=== PATIENT | female | born 2000 | race Caucasian/White ===

== ENCOUNTER 2019-12-14 11:41 | Emergency (ER) | payer SELFPAY ==
--- NOTE | 2019-12-14 13:15 | EDPHYS ---
Physician Documentation [facility] Name: Nelida Chin Age: 19 yrs Sex: Female : 2000 Arrival Date: 12/14/2019 Time: 11:44 Bed 30 Private MD: DARIA Physician Bhanu Flores HPI: 12/13 13:10 This 19 yrs old Female presents to ER via Ambulatory with complaints of sierra Vaginal Itching. 13:10 The patient presents with a possible exposure to a sexually transmitted disease, sierra herpes. Onset: The symptoms/episode began/occurred 3 day(s) ago. Modifying factors: The symptoms are alleviated by nothing, the symptoms are aggravated by nothing. Associated signs and symptoms: The patient has no apparent associated signs or symptoms. Severity of symptoms: At their worst the symptoms were mild, in the emergency department the symptoms are unchanged. The patient is sexually active, reportedly has a single partner, does not use protection during intercourse. The patient has not experienced similar symptoms in the past. 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 - Social history:: Smoking status: Patient denies any tobacco usage or history of. - Family history:: not pertinent. ROS: 13:10 Constitutional: Negative for fever, chills, and weight loss, Eyes: Negative for injury, sierra pain, redness, and discharge, ENT: Negative for injury, pain, and discharge, Neck: Negative for injury, pain, and swelling, Cardiovascular: Negative for chest pain, palpitations, and edema, Respiratory: Negative for shortness of breath, cough, wheezing, and pleuritic chest pain, Abdomen/GI: Negative for abdominal pain, nausea, vomiting, diarrhea, and constipation, Back: Negative for injury and pain, MS/Extremity: Negative for injury and deformity, Skin: Negative for injury, rash, and discoloration, Neuro: Negative for headache, weakness, numbness, tingling, and seizure, Psych: Negative for depression, anxiety, suicide ideation, homicidal ideation, and hallucinations, Allergy/Immunology: Negative for hives, rash, and allergies, Endocrine: Negative for neck swelling, polydipsia, polyuria, polyphagia, and marked weight changes, Hematologic/Lymphatic: Negative for swollen nodes, abnormal bleeding, and unusual bruising. 13:10 : Positive for vaginal itching, of the groin. Exam: 13:10 Constitutional: This is a well developed, well nourished patient who is awake, alert, sierra and in no acute distress. Head/Face: Normocephalic, atraumatic. Eyes: Pupils equal round and reactive to light, extra-ocular motions intact. Lids and lashes normal. Conjunctiva and sclera are non-icteric and not injected. Cornea within normal limits. Periorbital areas with no swelling, redness, or edema. ENT: Nares patent. No nasal discharge, no septal abnormalities noted. Tympanic membranes are normal and external auditory canals are clear. Oropharynx with no redness, swelling, or masses, exudates, or evidence of obstruction, uvula midline. Mucous membranes moist. Neck: Trachea midline, no thyromegaly or masses palpated, and no cervical lymphadenopathy. Supple, full range of motion without nuchal rigidity, or vertebral point tenderness. No Meningismus. Chest/axilla: Normal chest wall appearance and motion. Nontender with no deformity. No lesions are appreciated. Cardiovascular: Regular rate and rhythm with a normal S1 and S2. No gallops, murmurs, or rubs. Normal PMI, no JVD. No pulse deficits. Respiratory: Lungs have equal breath sounds bilaterally, clear to auscultation and percussion. No rales, rhonchi or wheezes noted. No increased work of breathing, no retractions or nasal flaring. Abdomen/GI: Soft, non-tender, with normal bowel sounds. No distension or tympany. No guarding or rebound. No evidence of tenderness throughout. Back: No spinal tenderness. No costovertebral tenderness. Full range of motion. MS/ Extremity: Pulses equal, no cyanosis. Neurovascular intact. Full, normal range of motion. Neuro: Awake and alert, GCS 15, oriented to person, place, time, and situation. Cranial nerves II-XII grossly intact. Motor strength 5/5 in all extremities. Sensory grossly intact. Cerebellar exam normal. Normal gait. Psych: Awake, alert, with orientation to person, place and time. Behavior, mood, and affect are within normal limits. 13:10 Skin: Appearance: Temperature: normal temperature, Moisture: normal moisture, petechiae, not noted, ecchymosis, not noted, flushing, not noted, swelling, is not appreciated. Vital Signs: 12:02 BP 131 / 82; Pulse 81; Resp 16 S; Temp 98.4(TE); Pulse Ox 100% on R/A; Weight 62.14 kg aa5 (R); Height 5 ft. 6 in. (167.64 cm) (R); Pain 0/10; 12:52 BP 114 / 77; Pulse 80; Resp 14; Temp 98.4; Pulse Ox 100% on R/A; mh5 12:02 Body Mass Index 22.11 (62.14 kg, 167.64 cm) aa5 MDM: 12:40 Patient medically screened. [facility] 13:13 Data reviewed: vital signs, nurses notes, lab test result(s), urinalysis. [facility] 12/13 13:10 Order name: Wound Culture: hsv [facility] 12/13 13:43 Order name: Urine Dipstick--Ancillary (enter results) 12/13 13:43 Order name: Urine --Ancillary (enter results) 12/13 13:46 Order name: Wound Culture [facility] 12/13 14:07 Order name: Urine --Ancillary [facility] 12/13 14:07 Order name: Urine Dipstick-Ancillary [facility] 12/13 13:10 Order name: Urine Dipstick-Ancillary (obtain specimen); Complete Time: 13:41 [facility] 12/13 13:10 Order name: Urine Test (obtain specimen); Complete Time: 13:41 [facility] Administered Medications: 14:04 Drug: Rocephin (cefTRIAXone) 1 grams Route: IM; Site: right ventrogluteal; iw 14:20 Follow up: Response: No adverse reaction iw 14:04 Drug: Valtrex 1000 mg Route: PO; iw 14:20 Follow up: Response: No adverse reaction iw 14:05 Drug: Zithromax 1 grams Route: PO; iw 14:20 Follow up: Response: No adverse reaction iw Disposition: 12/14/19 13:14 Discharged to Home. Impression: Rash and other nonspecific skin eruption - genital. - Condition is Stable. - Discharge Instructions: Rash, Sexually Transmitted Disease, Sexually Transmitted Disease, Hvcd-pi-Vusr, Rash, Bghi-ox-Dsal. - Prescriptions for Valtrex 1 g Oral Tablet - take 1 tablet by ORAL route every 12 hours for 10 days; 20 tablet. Doxycycline Hyclate 100 mg Oral Tablet - take 1 tablet by ORAL route every 12 hours; 20 tablet. Motrin IB 200 mg Oral Tablet - take 2 tablet by ORAL route every 6 hours As needed as needed with food; 30 tablet. - Medication Reconciliation Form, Thank You Letter, Antibiotic Education, Prescription Opioid Use, Work release form form. - Follow up: Private Physician; When: 2 - 3 days; Reason: Recheck today's complaints, Continuance of care, Re-evaluation by your physician. - Problem is new. - Symptoms have improved. Signatures: Dispatcher [employer] EDBhanu Loera MD MD cha Williams, Irene, RN RN Elizabeth Mendosa RN RN aa5 Corrections: (The following items were deleted from the chart) 14:18 13:14 12/14/2019 13:14 Discharged to Home. Impression: Rash and other nonspecific skin iw eruption - genital. Condition is Stable. Forms are Medication Reconciliation Form, Thank You Letter, Antibiotic Education, Prescription Opioid Use. Follow up: Private Physician; When: 2 - 3 days; Reason: Recheck today's complaints, Continuance of care, Re-evaluation by your physician. Problem is new. Symptoms have improved. sierra
--- NOTE | 2019-12-14 13:15 | ER ---
Nurse's Notes [facility] Name: Nelida Chin Age: 19 yrs Sex: Female : 2000 Arrival Date: 12/14/2019 Time: 11:44 Bed 30 Private MD: Diagnosis: Rash and other nonspecific skin eruption-genital Presentation: 12/13 12:02 Chief complaint: Patient states: "I shaved my pubic area on Tuesday and now I have bumps aa5 and it balderrama and it itches". Coronavirus screen: The patient has NOT traveled to a country currently being monitored by the [facility] within the last 14 days. The patient has NOT had contact with any known and/or suspected case of coronavirus. Ebola Screen: Patient negative for fever greater than or equal to 101.5 degrees Fahrenheit, and additional compatible Ebola Virus Disease symptoms. Initial Sepsis Screen: Does the patient meet any 2 criteria? No. Patient's initial sepsis screen is negative. Does the patient have a suspected source of infection? No. Patient's initial sepsis screen is negative. Risk Assessment: Do you want to hurt yourself or someone else? Patient reports no desire to harm self or others. 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 - Social history:: Smoking status: Patient denies any tobacco usage or history of. - Family history:: not pertinent. Screenin:22 Abuse screen: Denies threats or abuse. Denies injuries from another. Nutritional iw screening: No deficits noted. Tuberculosis screening: No symptoms or risk factors identified. Fall Risk None identified. Assessment: 12:20 General: Appears in no apparent distress. Behavior is calm, cooperative. Pain: Denies iw pain. Neuro: Level of Consciousness is awake, alert, obeys commands, Oriented to person, place, time, situation, Moves all extremities. Full function. Cardiovascular: Patient's skin is warm and dry. Respiratory: Respiratory effort is even, unlabored, Respiratory pattern is regular, symmetrical. GI: Abdomen is flat, non-distended. : Blisters noted on labia Reports vaginal itching. Derm: Skin is intact, is healthy with good turgor. Musculoskeletal: Range of motion: intact in all extremities. Injury Description:. Vital Signs: 12:02 BP 131 / 82; Pulse 81; Resp 16 S; Temp 98.4(TE); Pulse Ox 100% on R/A; Weight 62.14 kg aa5 (R); Height 5 ft. 6 in. (167.64 cm) (R); Pain 0/10; 12:52 BP 114 / 77; Pulse 80; Resp 14; Temp 98.4; Pulse Ox 100% on R/A; mh5 12:02 Body Mass Index 22.11 (62.14 kg, 167.64 cm) aa5 ED Course: 11:44 Patient arrived in ED. ag5 12:01 Arm band placed on. aa5 12:03 Triage completed. aa 12:20 Nicolasa Phillips, RN is Primary Nurse. iw 12:22 No provider procedures requiring assistance completed. iw 12:38 Bhanu Flores MD is Attending Physician. [facility] 12:57 Patient has correct armband on for positive identification. Placed in gown. Bed in low mh5 position. Call light in reach. Side rails up X 1. Pillow given. Pulse ox on. NIBP on. 13:41 Wound Culture: hsv Sent. iw Administered Medications: 14:04 Drug: Rocephin (cefTRIAXone) 1 grams Route: IM; Site: right ventrogluteal; iw 14:20 Follow up: Response: No adverse reaction iw 14:04 Drug: Valtrex 1000 mg Route: PO; iw 14:20 Follow up: Response: No adverse reaction iw 14:05 Drug: Zithromax 1 grams Route: PO; iw 14:20 Follow up: Response: No adverse reaction iw Outcome: 13:14 Discharge ordered by . [facility] 14:18 Patient left the ED. iw Signatures: Bhanu Flores MD MD cha Williams, Irene, RN INDRA Elizabeth Blake RN RN [email or web address] Azeb Perez [facility] Natalie, Judith banner
[2019-12-14] MEDS ORDERED: AZITHROMYCIN 250 MG TAB ONE (13:50)
[2019-12-14] MEDS ORDERED: VALACYCLOVIR 500 MG TAB ONE (13:50)
[2019-12-14] MEDS ORDERED: CEFTRIAXONE 1000 MG/VIAL ONE (13:51)
[2019-12-14 14:06] LABS: Urine Blood TRACE (NEG); Urine Glucose NEGATIVE (NEG); Urine Protein TRACE (NEG); Urine Specific Gravity 1.025 (1.005-1.030); Urine pH 6.5 (5.0-7.0)
[2019-12-14 14:42] VITALS: TEMP 98.4; O2SAT 100
[2019-12-14 14:43] VITALS: BP 114/77
== END 2019-12-14 14:18 | disposition home or self-care (01) ==
LOC: ER 11:41
DX: L29.2 Pruritus vulvae (principal)
CPT/HCPCS: 81003; 81025; 87252; 96372; 99283

== ENCOUNTER 2020-10-26 11:55 | Emergency (ER) | payer SELFPAY ==
[2020-10-26 14:15] LABS: Urine Blood NEGATIVE (NEG); Urine Glucose NEGATIVE (NEG); Urine Protein 1+ (NEG); Urine pH 8.5 (5.0-7.0)
[2020-10-26 14:25] LABS: SARS-COV-2 RT PCR NEGATIVE (NEGATIVE)
[2020-10-26] MEDS ORDERED: NA CHLORIDE 0.9% 0 ML ONE (15:02)
[2020-10-26] MEDS ORDERED: ONDANSETRON 4 MG/2 ML VIAL ONE (15:02)
[2020-10-26] MEDS ORDERED: NA CHLORIDE 0.9% 1,000 ML ONE (15:03)
[2020-10-26 15:04] LABS: Absolute Lymphocytes (CBC) 1.2 K/uL (0.7-4.9); Basophils % 0.8 % (0-1.3); Hematocrit 41.9 % (36.0-45.0); Lymphocytes % 13.3 % (15.3-44.8); RBC Red Blood Cell Count 4.59 M/uL (3.86-4.86)
[2020-10-26 15:21] LABS: ALT/SGPT 18 U/L (12-78); AST/SGOT 17 U/L (15-37); Albumin 4.5 g/dL (3.4-5.0); Alkaline Phosphatase 79 U/L (45-117); BUN Blood Urea Nitrogen 9 mg/dL (7-18); Bicarbonate 28 mmol/L (21-32); Bilirubin Direct 0.1 mg/dL (0-0.2); Bilirubin Total 0.4 mg/dL (0.2-1.0); Glucose Level 87 mg/dL (74-106); Lipase 71 U/L (73-393); Potassium 3.9 mmol/L (3.5-5.1); Protein, Total 8.4 g/dL (6.4-8.2); Sodium Level 143 mmol/L (136-145)
--- NOTE | 2020-10-26 16:03 | RAD REPORT ---
EXAM DESCRIPTION: CT - Abdomen Pelvis W Contrast - 10/26/2020 3:49 pm CLINICAL HISTORY: ABD PAIN COMPARISON: No comparisons TECHNIQUE: Biphasic, helical CT imaging of the abdomen and pelvis was performed following 100 ml non -ionic IV contrast. No oral contrast administered. All CT scans are performed using dose optimization technique as appropriate and may include automated exposure control or mA/KV adjustment according to patient size. FINDINGS: No suspicious findings in the lung bases. The liver, spleen, and pancreas show no suspicious findings. Gallbladder and biliary tree are also wi thout suspicious finding. Symmetric renal function is seen with no hydronephrosis or suspicious renal mass. No pyelonephritis o r acute parenchymal process. No bladder abnormalities. No adrenal abnormalities. No gastric wall thickening or edema. Patient has a few nonspecific, mildly prominent small bowel loop s. This is nonspecific but could indicate enteritis. No appendicitis findings. No active GI process c onfirmed. No free air, free fluid or inflammatory stranding. No hernia, mass or bulky lymphadenopath y. Uterus and ovaries show no suspicious findings. No suspicious bony findings. IMPRESSION: Contrast enhanced CT abdomen and pelvis showing no emergent finding. A few small mildly prominent small bowel loops could indicate enteritis. No acute or CAPTURE MANAGER finding.
--- NOTE | 2020-10-26 16:07 | ER ---
Nurse's Notes [facility] Name: Nelida Chin Age: 20 yrs Sex: Female : 2000 Arrival Date: 10/26/2020 Time: 11:58 Bed 13 Private MD: Diagnosis: Enteritis Presentation: 10/26 12:10 Chief complaint: Patient states: CALERO, fatigue, N/V, shaky with chills today. Took ll1 ibuprofen before arrival, CALERO gone now. Unknown if she has fever. Coronavirus screen: Client denies travel out of the [place] in the last 14 days. chills, congestion, cough unrelated to allergies, fatigue, headache, nausea, shaking with chills, vomiting. Client presents with at least one sign or symptom that may indicate coronavirus-19. Standard/surgical mask placed on the client. Ebola Screen: Patient denies travel to an Ebola-affected area in the 21 days before illness onset. Initial Sepsis Screen: Does the patient meet any 2 criteria? No. Patient's initial sepsis screen is negative. Does the patient have a suspected source of infection? Yes: Productive cough/pneumonia. Risk Assessment: Do you want to hurt yourself or someone else? Patient reports no desire to harm self or others. Onset of symptoms was October 26, 2020. 12:10 Method Of Arrival: Ambulatory ll1 12:10 Acuity: JUSTIN 3 ll1 Historical: - Allergies: 12:09 No Known Allergies; ll1 - PMHx: 12:09 None; ll1 - PSHx: 12:09 None; ll1 - Immunization history:: Flu vaccine is not up to date. - Social history:: Smoking status: Reported history of juuling and/or vaping. Screenin:59 Abuse screen: Denies threats or abuse. Nutritional screening: No deficits noted. vg1 Tuberculosis screening: No symptoms or risk factors identified. Fall Risk None identified. Assessment: 14:45 General: Appears in no apparent distress. comfortable, Behavior is calm, cooperative. vg1 Pain: Denies pain. Neuro: Level of Consciousness is awake, alert, obeys commands, Oriented to person, place, time, situation. Cardiovascular: Capillary refill < 3 seconds in bilateral fingers. Respiratory: Airway is patent Respiratory effort is even, unlabored, Respiratory pattern is regular, symmetrical. GI: Abdomen is flat, Bowel sounds present X 4 quads. Reports nausea, vomiting, Patient currently denies diarrhea. : No signs and/or symptoms were reported regarding the genitourinary system. EENT: No signs and/or symptoms were reported regarding the EENT system. Derm: Skin is clammy. Musculoskeletal: Circulation, motion, and sensation intact. 16:01 Reassessment: Patient appears in no apparent distress at this time. Patient and/or vg1 family updated on plan of care and expected duration. Pain level reassessed. Patient is alert, oriented x 3, equal unlabored respirations, skin warm/dry/pink. Patient denies pain at this time. Patient states feeling better. Vital Signs: 12:10 BP 113 / 77; Pulse 72; Resp 16; Temp 98.3; Pulse Ox 99% ; Weight 60.78 kg; Height 5 ft. ll1 7 in. (170.18 cm); Pain 0/10; 14:45 BP 120 / 77; Pulse 73; Resp 14; Pulse Ox 97% on R/A; vg1 16:01 BP 114 / 65; Pulse 84; Resp 14; Pulse Ox 100% on R/A; vg1 12:10 Body Mass Index 20.99 (60.78 kg, 170.18 cm) ll1 ED Course: 11:58 Patient arrived in ED. rg4 12:10 Arm band placed on. ll1 12:12 Triage completed. ll1 13:05 Chantel Gomez FNP-C is [facility]. kb 13:05 Gypsy Zambrano MD is Attending Physician. kb 13:20 COVID swab sent to lab. Flu and/or RSV swab sent to lab. jp3 14:15 Urine collected: clean catch specimen, clear, bry colored. jp3 14:41 Sandra Longoria, RN is Primary Nurse. vg1 14:49 Initial lab(s) drawn, by me, sent to lab. Inserted saline lock: 20 gauge in right jp3 antecubital area, using aseptic technique. Blood collected. 14:49 Patient maintains SpO2 saturation greater than 95% on room air. jp3 14:52 Bed in low position. Call light in reach. Side rails up X 1. Warm blanket given. Verbal jp3 reassurance given. Pulse ox on. NIBP on. 15:49 CT Abd/Pelvis - IV Contrast Only In Process Unspecified. EDMS 16:49 No provider procedures requiring assistance completed. IV discontinued, intact, vg1 bleeding controlled, No redness/swelling at site. Pressure dressing applied. Administered Medications: 14:57 Drug: NS 0.9% 1000 ml Route: IV; Rate: 1000 ml; Site: right antecubital; vg1 16:50 Follow up: IV Status: Completed infusion; IV Intake: 1000ml vg1 14:57 Drug: Zofran (Ondansetron) 4 mg Route: IVP; Site: right antecubital; vg1 16:50 Follow up: Response: Nausea is decreased vg1 Point of Care Testing: Urine : 14:15 hCG Reading: Negative; Control Reading: Positive; jp3 Intake: 16:50 IV: 1000ml; Total: 1000ml. vg1 Outcome: 16:06 Discharge ordered by . kb 16:49 Discharged to home ambulatory. vg1 16:49 Discharged to home ambulatory. 16:49 Condition: stable 16:49 Discharge instructions given to patient, Instructed on discharge instructions, follow up and referral plans. medication usage, Demonstrated understanding of instructions, follow-up care, medications, Prescriptions given X 2. 16:49 Patient left the ED. vg1 Signatures: Dispatcher [employer] EDNV Chantel Gomez, SIMONE PRECIADO-Tyra Villar rg4 Dex Tai jp3 Sandra Longoria, RN RN vg1 Patrick Bryant RN RN ll1
--- NOTE | 2020-10-26 16:07 | EDPHYS ---
Physician Documentation [facility] Name: Nelida Chin Age: 20 yrs Sex: Female : 2000 Arrival Date: 10/26/2020 Time: 11:58 Bed 13 Private MD: ED Physician Gypsy Zambrano HPI: 10/26 16:20 This 20 yrs old Female presents to ER via Ambulatory with complaints of kb Headache, Vomiting. 16:20 The patient presents to the emergency department with nausea, vomiting. Onset: The kb symptoms/episode began/occurred this morning. Possible causes: unknown. The symptoms are aggravated by nothing. The symptoms are alleviated by nothing. Associated signs and symptoms: Pertinent positives: nausea, vomiting. Severity of symptoms: At their worst the symptoms were mild moderate in the emergency department the symptoms are unchanged. The patient has not experienced similar symptoms in the past. The patient has not recently seen a physician. pt reports nausea, vomiting, headache, chills, and fatigue that started this morning. Historical: - Allergies: 12:09 No Known Allergies; ll1 - PMHx: 12:09 None; ll1 - PSHx: 12:09 None; ll1 - Immunization history:: Flu vaccine is not up to date. - Social history:: Smoking status: Reported history of juuling and/or vaping. ROS: 16:21 Cardiovascular: Negative for chest pain, palpitations, and edema, Respiratory: Negative kb for shortness of breath, cough, wheezing, and pleuritic chest pain, Back: Negative for injury and pain, MS/Extremity: Negative for injury and deformity, Skin: Negative for injury, rash, and discoloration. 16:21 Constitutional: Positive for chills, fatigue, malaise. 16:21 Abdomen/GI: Positive for abdominal pain, nausea and vomiting. 16:21 Neuro: Positive for headache. Exam: 16:21 Constitutional: This is a well developed, well nourished patient who is awake, alert, kb and in no acute distress. Head/Face: Normocephalic, atraumatic. Chest/axilla: Normal chest wall appearance and motion. Nontender with no deformity. No lesions are appreciated. Cardiovascular: Regular rate and rhythm with a normal S1 and S2. No gallops, murmurs, or rubs. Normal PMI, no JVD. No pulse deficits. Respiratory: Lungs have equal breath sounds bilaterally, clear to auscultation and percussion. No rales, rhonchi or wheezes noted. No increased work of breathing, no retractions or nasal flaring. Abdomen/GI: Soft, non-tender, with normal bowel sounds. No distension or tympany. No guarding or rebound. No evidence of tenderness throughout. Skin: Warm, dry with normal turgor. Normal color with no rashes, no lesions, and no evidence of cellulitis. MS/ Extremity: Pulses equal, no cyanosis. Neurovascular intact. Full, normal range of motion. Neuro: Awake and alert, GCS 15, oriented to person, place, time, and situation. Cranial nerves II-XII grossly intact. Motor strength 5/5 in all extremities. Sensory grossly intact. Cerebellar exam normal. Normal gait. Vital Signs: 12:10 BP 113 / 77; Pulse 72; Resp 16; Temp 98.3; Pulse Ox 99% ; Weight 60.78 kg; Height 5 ft. ll1 7 in. (170.18 cm); Pain 0/10; 14:45 BP 120 / 77; Pulse 73; Resp 14; Pulse Ox 97% on R/A; vg1 16:01 BP 114 / 65; Pulse 84; Resp 14; Pulse Ox 100% on R/A; vg1 12:10 Body Mass Index 20.99 (60.78 kg, 170.18 cm) ll1 MDM: 13:13 Patient medically screened. kb 16:05 Data reviewed: vital signs, nurses notes. Data interpreted: Pulse oximetry: on room air kb is 100 %. Interpretation: normal. Counseling: I had a detailed discussion with the patient and/or guardian regarding: the historical points, exam findings, and any diagnostic results supporting the discharge/admit diagnosis, lab results, radiology results, the need for outpatient follow up, a family practitioner, to return to the emergency department if symptoms worsen or persist or if there are any questions or concerns that arise at home. 10/26 13:37 Order name: Urine Dipstick--Ancillary (enter results); Complete Time: 14:23 hb 10/26 13:37 Order name: Urine --Ancillary (enter results); Complete Time: 14:23 hb 10/26 14:26 Order name: COVID-19/FLU A+B; Complete Time: 14:27 EDMS 10/26 14:38 Order name: Lipase; Complete Time: 15:22 kb 10/26 13:14 Order name: Urine Dipstick-Ancillary (obtain specimen); Complete Time: 13:36 kb 10/26 14:38 Order name: Hepatic Function; Complete Time: 15:22 kb 10/26 14:38 Order name: Basic Metabolic Panel; Complete Time: 15:22 kb 10/26 14:38 Order name: CBC with Diff; Complete Time: 15:07 kb 10/26 14:38 Order name: [place] Screen Profile; Complete Time: 15:19 kb 10/26 15:23 Order name: CT Abd/Pelvis - IV Contrast Only; Complete Time: 16:05 kb 10/26 13:14 Order name: Urine Test (obtain specimen); Complete Time: 13:36 kb 10/26 14:38 Order name: IV Saline Lock; Complete Time: 15:00 kb 10/26 14:38 Order name: Labs collected and sent; Complete Time: 15:00 kb Administered Medications: 14:57 Drug: NS 0.9% 1000 ml Route: IV; Rate: 1000 ml; Site: right antecubital; vg1 16:50 Follow up: IV Status: Completed infusion; IV Intake: 1000ml vg1 14:57 Drug: Zofran (Ondansetron) 4 mg Route: IVP; Site: right antecubital; vg1 16:50 Follow up: Response: Nausea is decreased vg1 Point of Care Testing: Urine : 14:15 hCG Reading: Negative; Control Reading: Positive; jp3 Disposition: 17:07 Co-signature as Attending Physician, Gypsy Zambrano MD. ma2 Disposition: 10/26/20 16:06 Discharged to Home. Impression: Enteritis. - Condition is Stable. - Discharge Instructions: Viral Gastroenteritis, Adult, [id number]. - Prescriptions for Bentyl 20 mg Oral Tablet - take 1 tablet by ORAL route every 6 hours As needed; 20 tablet. Zofran 4 mg Oral Tablet - take 1 tablet by ORAL route every 6 hours As needed; 20 tablet. - Medication Reconciliation Form, Thank You Letter, Antibiotic Education, Prescription Opioid Use form. - Follow up: Emergency Department; When: As needed; Reason: Worsening of condition. Follow up: Private Physician; When: 2 - 3 days; Reason: Recheck today's complaints, Continuance of care, Re-evaluation by your physician. Signatures: Dispatcher [employer] EDNY Chantel Gomez, SIMONE RENDONP-Gypsy Maloney MD MD ma2 Sandra Longoria, RN RN vg1 Patrick Bryant, INDRA RN ll1 Corrections: (The following items were deleted from the chart) 13:36 13:04 CORONAVIRUS+MR.LAB.BRZ ordered. EDNY EDMS 13:38 13:04 Influenza Screen (A \T\ B)+BA.LAB.BRZ ordered. EDNY EDMS 16:49 16:06 10/26/2020 16:06 Discharged to Home. Impression: Enteritis. Condition is Stable. vg1 Forms are Medication Reconciliation Form, Thank You Letter, Antibiotic Education, Prescription Opioid Use. Follow up: Emergency Department; When: As needed; Reason: Worsening of condition. Follow up: Private Physician; When: 2 - 3 days; Reason: Recheck today's complaints, Continuance of care, Re-evaluation by your physician. kb
[2020-10-26 16:55] VITALS: TEMP 98.3
[2020-10-26 16:58] VITALS: BP 114/65; O2SAT 100
== END 2020-10-26 16:49 | disposition home or self-care (01) ==
LOC: ER 11:55
DX: K52.9 Noninfective gastroenteritis and colitis, unspecified (principal); Z20.822 Contact with and (suspected) exposure to COVID-19; Z87.891 Personal history of nicotine dependence
CPT/HCPCS: 0240U; 36415; 74177; 80048; 80076; 81003; 81025; 83690; 85025; 86308; 96361; 96374; 99284; J2405; J7030; J7040; Q9967

== ENCOUNTER 2021-01-30 10:27 | Emergency (ER) | payer SELFPAY ==
[2021-01-30] MEDS ORDERED: ONDANSETRON 4 MG (ODT) TAB ONE (11:15)
--- NOTE | 2021-01-30 14:39 | ER ---
Nurse's Notes [facility] Name: Nelida Chin Age: 20 yrs Sex: Female : 2000 Arrival Date: 01/30/2021 Time: 10:29 Bed Waiting Private MD: Diagnosis: Presentation: 01/30 10:59 Chief complaint: Vomiting and lower abdominal pain since 0500 today. Not tolerating ss fluids. Coronavirus screen: Client presents with at least one sign or symptom that may indicate coronavirus-19. Standard/surgical mask placed on the client. Provider contacted for isolation considerations. Ebola Screen: No symptoms or risks identified at this time. Initial Sepsis Screen: Does the patient meet any 2 criteria? No. Patient's initial sepsis screen is negative. Does the patient have a suspected source of infection? No. Patient's initial sepsis screen is negative. Risk Assessment: Do you want to hurt yourself or someone else? Patient reports no desire to harm self or others. Onset of symptoms was January 30, 2021. 10:59 Method Of Arrival: Ambulatory 10:59 Acuity: JUSTIN 3 Historical: - Allergies: 11:01 No Known Allergies; ss - Home Meds: 11:01 None [Active]; ss - PMHx: 11: None; ss - PSHx: 11:01 None; ss - Immunization history:: Adult Immunizations up to date. - Social history:: Smoking status: Patient denies any tobacco usage or history of. Assessment: 11:01 Reassessment: Vomiting in triage. VO rcvd from [facility] for PO Zofran. Vital Signs: 10:59 BP 137 / 86; Pulse 55; Resp 18; Temp 97.3; Pulse Ox 99% on R/A; Pain 8/10; ss ED Course: 10:29 Patient arrived in ED. mr 11:00 Triage completed. ss 11:01 Arm band placed on. Administered Medications: 10:59 Drug: Ondansetron 4 mg Route: PO; Outcome: 14:39 Patient left the ED. Signatures: Norma Hobbs mr Jennifer Bonilla RN RN Shirin Armstrong RN RN hb
[2021-01-30 14:45] VITALS: BP 137/86; TEMP 97.3; O2SAT 99
== END 2021-01-30 14:39 | disposition left against medical advice (07) ==
LOC: ER 10:27
DX: R10.30 Lower abdominal pain, unspecified (principal); R11.10 Vomiting, unspecified; Z53.21 Procedure and treatment not carried out due to patient leaving prior to being seen by health care provider
CPT/HCPCS: 99282

== ENCOUNTER 2023-04-12 05:48 | Emergency (ER) | payer OTHER ==
--- OUTSIDE RECORDS SUMMARY | 2023-04-12 05:51 | XMS REPORT | Continuity of Care Document ---
:2000 Author Organization [facility] t Address [address] [facility] [address] [place] [address] Care Team Providers Name Role Phone PCP, PATIENT DOES NOT HAVE A Primary Care Physician UnavailEL King Attending Clinician Unavailable BEATRIZ STINSON Attending Clinician Unavailable SEAN POLLOCK Attending Clinician Unavailable [facility], [facility] Attending Clinician Unavailable Beatriz Stinson PA-C Attending Clinician Doctor Unassigned, [place] Attending Clinician Unavailable Tenisha Moreland MA Attending Clinician Unavailable Nurse, [facility] Attending Clinician Unavailable [facility] Attending Clinician Unavailable Kirt Pepper Attending Clinician KIRT KNIGHT Attending Clinician Unavailable Payers Payer Name Policy Type Policy Number Effective Date Expiration Date [facility] [id number] 2023 CHOICE [place] STAR 00:00:00 COMMERCIAL [id number] 2021 NON-CONTRACT 00:00:00 GENERIC Problems Condition Condition Condition Status Onset Resolution Last Treating Co mments Source Name Details Category Date Date Treatment Clinician Date Encounter Encounter Disease Active 2015-10 Uni vers for other for other 11-11 ity of general general 00:00: [place] counseling counseling 00 Me dical or advice or advice Bran ch on on contracept contracept ion ion Allergies, Adverse Reactions, Alerts Allergy Allergy Status Severity Reaction(s) Onset Inactive Treating Comm ents Source Name Type Date Date Clinician NO KNOWN Drug Active Univers ALLERGIE Class ity of S [facility] Social History Social Habit Start Date Stop Date Quantity Comments Source History SDOH University o f Alcohol Frequency [place] [facility] History SDOH University o f Alcohol Std [place] [facility] Drinks [facility] History SDWI University o f Alcohol Binge [place] [facility] Exposure to Not sure University of SARS-CoV-2 [facility] (event) [place] Alcohol intake 2021-12-10 2021-12-10 Current drinker Unive rsity of 00:00:00 00:00:00 of alcohol [facility] (finding) [place] Alcohol Comment 2021-11-02 2021-11-02 social Universit y of 00:00:00 00:00:00 [facility] Tobacco use and 2021-11-02 2021-11-02 Never used Universit y of exposure 00:00:00 00:00:00 [facility] Tobacco Comment 2021-11-02 2021-11-02 vapes Universit y of 00:00:00 00:00:00 [facility] Sex Assigned At [birth year] Universit y of 00:00:00 00:00:00 [facility] Smoking Status Start Date Stop Date Source Current every day smoker 2021-11-02 00:00:00 Uni versity of [facility] Medications Ordered Filled Start Stop Current Ordering Indication Dosage Frequency Signature Comments Components Source Medication Medication Date Date Medication? Clinician (SIG) Name Name No known No Univers medications 3-31 ity of 12:44: [address] No known 0 No Univers medications 3-31 ity of 12:44: [address] No known No Univers medications 3-31 ity of 12:44: [address] Immunizations Ordered Immunization Filled Immunization Date Status Commen ts Source Name Name HPV 2015-09-22 Completed University of 00:00:00 [facility] HPV 2015-09-22 Completed University of 00:00:00 [facility] HPV 2015-09-22 Completed University of 00:00:00 [facility] HPV 2015-05-16 Completed University of 00:00:00 [facility] Meningococcal 2015-05-16 Completed University of Polysaccharide 00:00:00 [place] [facility] (groups A, C, Y and Branc h W-135) conjugate vaccine (MCV4P) HPV 2015-05-16 Completed University of 00:00:00 [facility] Meningococcal 2015-05-16 Completed University of Polysaccharide 00:00:00 [place] [facility] (groups A, C, Y and Branc h W-135) conjugate vaccine (MCV4P) HPV 2015-05-16 Completed University of 00:00:00 [facility] Meningococcal 2015-05-16 Completed University of Polysaccharide 00:00:00 [place] [facility] (groups A, C, Y and Branc h W-135) conjugate vaccine (MCV4P) HEPATITIS A 2011-05-14 Completed University of 00:00:00 [facility] HPV 2011-05-14 Completed University of 00:00:00 [facility] Meningococcal Vaccine 2011-05-14 Completed Uni versity of 00:00:00 [facility] TDAP 2011-05-14 Completed University of 00:00:00 [facility] Varicella 2011-05-14 Completed University of (varivax)(chicken 00:00:00 [place] [facility] pox) Branch HEPATITIS A 2011-05-14 Completed University of 00:00:00 [facility] HPV 2011-05-14 Completed University of 00:00:00 [facility] Meningococcal Vaccine 2011-05-14 Completed Uni versity of 00:00:00 [facility] TDAP 2011-05-14 Completed University of 00:00:00 [facility] Varicella 2011-05-14 Completed University of (varivax)(chicken 00:00:00 [place] [facility] pox) Branch HEPATITIS A 2011-05-14 Completed University of 00:00:00 [facility] HPV 2011-05-14 Completed University of 00:00:00 [facility] Meningococcal Vaccine 2011-05-14 Completed Uni versity of 00:00:00 [facility] TDAP 2011-05-14 Completed University of 00:00:00 [facility] Varicella 2011-05-14 Completed University of (varivax)(chicken 00:00:00 [place] [facility] pox) Branch DTAP 2002-12-31 Completed University of 00:00:00 [facility] MMR 2002-12-31 Completed University of 00:00:00 [place] [facility] Polio (IPV/OPV) 2002-12-31 Completed Universit y of 00:00:00 [facility] Branch DTAP 2002-12-31 Completed University of 00:00:00 [facility] Branch MMR 2002-12-31 Completed University of 00:00:00 [facility] Branch Polio (IPV/OPV) 2002-12-31 Completed Universit y of 00:00:00 [facility] Branch DTAP 2002-12-31 Completed University of 00:00:00 [facility] Branch MMR 2002-12-31 Completed University of 00:00:00 [facility] Branch Polio (IPV/OPV) 2002-12-31 Completed Universit y of 00:00:00 [facility] Branch DTAP 2001-12-13 Completed University of 00:00:00 [facility] Branch DTAP 2001-12-13 Completed University of 00:00:00 [facility] Branch DTAP 2001-12-13 Completed University of 00:00:00 [facility] Branch DTAP 2001-04-19 Completed University of 00:00:00 [facility] Branch Polio (IPV/OPV) 2001-04-19 Completed Universit y of 00:00:00 [facility] Branch DTAP 2001-04-19 Completed University of 00:00:00 [facility] Branch Polio (IPV/OPV) 2001-04-19 Completed Universit y of 00:00:00 [facility] Branch DTAP 2001-04-19 Completed University of 00:00:00 [facility] Branch Polio (IPV/OPV) 2001-04-19 Completed Universit y of 00:00:00 [facility] Branch DTAP 2001-01-09 Completed University of 00:00:00 [facility] Branch Hep B, Adol or Pedi 2001-01-09 Completed Unive rsity of Dosage 00:00:00 [facility] Branch Polio (IPV/OPV) 2001-01-09 Completed Universit y of 00:00:00 [facility] Branch DTAP 2001-01-09 Completed University of 00:00:00 [place] [facility] Hep B, Adol or Pedi 2001-01-09 Completed Unive rsity of Dosage 00:00:00 [facility] Branch Polio (IPV/OPV) 2001-01-09 Completed Universit y of 00:00:00 [facility] Branch DTAP 2001-01-09 Completed University of 00:00:00 [facility] Branch Hep B, Adol or Pedi 2001-01-09 Completed Unive rsity of Dosage 00:00:00 [facility] Polio (IPV/OPV) 2001-01-09 Completed Universit y of 00:00:00 [facility] Branch DTAP 2000-08-03 Completed University of 00:00:00 [facility] HIB 4 Dose Schedule 2000-08-03 Completed Unive rsity of 00:00:00 [facility] Hep B, Adol or Pedi 2000-08-03 Completed Unive rsity of Dosage 00:00:00 [facility] MMR 2000-08-03 Completed University of 00:00:00 [facility] Polio (IPV/OPV) 2000-08-03 Completed Universit y of 00:00:00 [facility] Varicella 2000-08-03 Completed University of (varivax)(chicken 00:00:00 [facility] edical pox) Branch DTAP 2000-08-03 Completed University of 00:00:00 [facility] HIB 4 Dose Schedule 2000-08-03 Completed Unive rsity of 00:00:00 [facility] Hep B, Adol or Pedi 2000-08-03 Completed Unive rsity of Dosage 00:00:00 [facility] MMR 2000-08-03 Completed University of 00:00:00 [facility] Polio (IPV/OPV) 2000-08-03 Completed Universit y of 00:00:00 [facility] Varicella 2000-08-03 Completed University of (varivax)(chicken 00:00:00 [facility] edical pox) Branch DTAP 2000-08-03 Completed University of 00:00:00 [facility] HIB 4 Dose Schedule 2000-08-03 Completed Unive rsity of 00:00:00 [facility] Branch Hep B, Adol or Pedi 2000-08-03 Completed Unive rsity of Dosage 00:00:00 [facility] MMR 2000-08-03 Completed University of 00:00:00 [facility] Polio (IPV/OPV) 2000-08-03 Completed Universit y of 00:00:00 [facility] Varicella 2000-08-03 Completed University of (varivax)(chicken 00:00:00 [place] [facility] pox) Branch Hep B, Adol or Pedi 2000 Completed Unive rsity of Dosage 00:00:00 [place] [facility] Hep B, Adol or Pedi 2000 Completed Unive rsity of Dosage 00:00:00 [facility] Hep B, Adol or Pedi 2000 Completed Unive rsity of Dosage 00:00:00 [facility] Vital Signs Vital Name Observation Time Observation Value Comments Source Systolic blood 2022-01-07 16:50:00 103 mm[Hg] Univer sity of pressure [facility] Diastolic blood 2022-01-07 16:50:00 69 mm[Hg] Unive rsity of pressure [facility] Heart rate 2022-01-07 16:50:00 82 /min [facility] Body temperature 2022-01-07 16:50:00 36.83 [facility] Res[facility] rate 2022-01-07 16:50:00 18 /min [facility] Body height 2022-01-07 16:50:00 167.6 cm [facility] Body weight 2022-01-07 16:50:00 53.071 kg [facility] BMI 2022-01-07 16:50:00 18.88 kg/m2 [facility] Procedures Procedure Date / Time Performing Clinician Source Performed [employer] 2022-01-04 05:01:00 Doctor Unassigned, [facility] [place] [facility] Encounters Start End Encounter Admission Attending Care Care Encounter Source Date/Time Date/Time Type Type Clinicians Facility Department ID 2023-04-13 2023-04-13 Outpatient Bridgette MIR [facility] [id number] Univers 14:30:00 14:30:[facility]-12-07 2022-12-07 Outpatient Bridgette STINSON [facility] [id number] Univers 10:00:00 10:00:00 BEATRIZ brower [facility] 2022-12-07 2022-12-07 Outpatient Bridgette STINSON [facility] [id number] Univers 10:00:00 10:00:00 BEATRIZ brower [facility] 2022-12-07 2022-12-07 Outpatient Bridgette STINSON [facility] [id number] Univers 10:00:00 10:00:00 BEATRIZ [facility] 2022-07-22 2022-07-22 Outpatient R KALEMARIAN, [facility] [id number] Univers 13:45:00 14:27:29 SEAN brower o f [facility] 2022-02-03 2022-02-03 Outpatient R [facility] [id number] Univers 10:30:00 10:30:00 ity of [facility] 2022-01-07 2022-01-07 Store Loss Prevention Manager Moiz, [facility] Main [facility] [id number] Univers 12:30:00 12:45:00 Visit Beatriz Stinson [id number] it[id number] [id number] S[place] dical NAL 353 [facility] 2022-01-07 2022-01-07 [facility] [id number] Univers 12:30:00 12:30:00 BEATRIZ itmak [facility] 2022-01-07 2022-01-07 [facility] [id number] Univers 12:30:00 12:30:00 [facility] 2022-01-07 2022-01-07 [facility] [id number] Univers 11:15:00 11:59:24 Visit Beatriz JAMISON [id number] i [id number] [id number] Sd dical NAL 134 [facility] 2022-01-04 2022-01-04 Orders Doctor OLVIN [id number] Univers 00:00:00 00:00:00 Only Unassigned, GENEVIEVE [id number] ity of [place] [facility] [id number] [place] as [id number] [address] 2022-01-01 2022-01-01 Patient Aniceto [facility] [id number] Univers 00:00:00 00:00:00 Secure Msg Tenisha JAMISON [id number] [facility] [id number] [phone] [address] 2021-12-10 2021-12-10 Nurse Nurse, [facility] [id number] Univers 09:00:00 09:25:06 Visit Beatriz Stinson [id number] [id number] [id number] [address] 2021-12-10 2021-12-10 [facility] [id number] Univers 09:00:00 09:00:00 BEATRIZ brower [facility] 2021-12-08 2021-12-08 [facility] [id number] Univers 00:00:00 00:00:00 Management Beatriz JAMISON [id number] ity [facility] [id number] [id number] [address] 2021-12-07 2021-12-07 Outpatient R KEVEN [facility] [id number] Univers 10:00:00 10:44:55 BEATRIZ brower [facility] 2021-12-07 2021-12-07 [facility] [id number] Univers 10:00:00 10:44:55 Visit Beatriz JAMISON [id number] i [id number] [phone] [address] 2021-12-07 2021-12-07 [facility] [id number] Univers 10:00:00 10:44:55 BEATRIZ brower [facility] 2021-12-04 2021-12-04 Orders Doctor BAH [id number] Univers 00:00:00 00:00:00 Only Unassigned, GENEVIEVE [id number] ity of [place] [facility] [id number] [place] [id number] [address] 2021-11-05 2021-11-05 Nurse Visit, Ang-Rmchp Nurse [facility] [id number] [id number] Univers 13:00:00 13:47:21 Visit Kirt Knight [employer] [id number] [facility] [id number] [place] MATERNAL [phone] [facility] & CHILD [address] [place] [address] 2021-11-05 2021-11-05 Outpatient Bridgette KNIGHT [facility] [id number] Univers 13:00:00 13:00:00 KIRT ulloa [facility] 2021-11-04 2021-11-04 Telephone Martin [facility] [id number] Univers 00:00:00 00:00:00 Kirt Angeles [employer] [id number] [facility] [id number] [place] MATERNAL [id number] [address] 2021-11-02 2021-11-02 Outpatient R MARTIN [facility] [id number] Univers 10:30:00 11:59:32 KIRT contreras [facility] 2021-11-02 2021-11-02 Outpatient Bridgette KNIGHT [facility] [id number] Univers 10:30:00 11:59:32 KIRT contreras [facility] 2021-11-02 2021-11-02 Outpatient Bridgette KNIGHT [facility] [id number] Univers 10:30:00 11:59:32 KIRT contreras [facility] 2021-11-02 2021-11-02 [facility] [id number] Univers 10:30:00 11:59:32 Visit Kirt Angeles [employer] [id number] [facility] [id number] [place] MATERNAL [phone] [facility] & CHILD [address] [place] [address] 2021-11-02 2021-11-02 Chiki BAH [id number] Univers 00:00:00 00:00:00 Only Unassigned, GENEVIEVE [id number] ity of [place] [facility] [id number] [place] as [phone] [facility] 009 Branch Results This patient has no known results.
--- NOTE | 2023-04-12 06:34 | ER ---
Nurse's Notes [facility] Name: Nelida Chin Age: 22 yrs Sex: Female : 2000 Arrival Date: 04/12/2023 Time: 05:48 Bed 5 Private MD: Diagnosis: Mild hyperemesis gravidarum;Dental caries, unspecified;Fracture of tooth (traumatic)-chronic Presentation: 04/12 06:00 Chief complaint: Patient states: tooth ache x1 week. Coronavirus screen: At this time, as6 the client does not indicate any symptoms associated with coronavirus-19. Ebola Screen: No symptoms or risks identified at this time. Initial Sepsis Screen: Does the patient meet any 2 criteria? No. Patient's initial sepsis screen is negative. Does the patient have a suspected source of infection? No. Patient's initial sepsis screen is negative. Risk Assessment: Do you want to hurt yourself or someone else? Patient reports no desire to harm self or others. Onset of symptoms was April 05, 2023. 06:00 Acuity: JUSTIN 5 as6 06:00 Method Of Arrival: Ambulatory as6 Triage Assessment: 05:57 General: Appears in no apparent distress. Behavior is calm, cooperative. Pain: Denies as6 pain. EENT: Poor dentition noted. Reports pain in lower right second molar and lower right third molar. RAW SAMPLER: 05:57 LMP 02/06/2023, Verified, EDC 11/13/2023, Gestational age from LMP: 9 weeks 2 as6 days Historical: - Allergies: 06:00 No Known Allergies; as6 - Home Meds: 06:00 None [Active]; as6 - PMHx: 06:00 None; as6 - PSHx: 06:00 None; as6 - Immunization history:: Client reports having NOT received the Covid vaccine. - Social history:: Smoking status: Reported history of juuling and/or vaping. - Family history:: not pertinent. Screenin:00 [facility] ED Fall Risk Assessment (Adult) Score/Fall Risk Level 0 - 2 = Low Risk. Abuse as6 screen: Denies threats or abuse. Denies injuries from another. Nutritional screening: No deficits noted. Tuberculosis screening: No symptoms or risk factors identified. Vital Signs: 05:57 BP 130 / 78; Pulse 83; Resp 18 S; Temp 98.4(TE); Pulse Ox 98% on R/A; Weight 58.97 kg as6 (R); Height 5 ft. 6 in. (R); Pain 0/10; 05:57 Body Mass Index 20.98 (58.97 kg, 167.64 cm) as6 05:57 Pain Scale: Adult as6 ED Course: 05:51 Patient arrived in ED. ag3 05:53 Charlie Miller, RN is Primary Nurse. as6 05:57 Arm band placed on. as6 06:00 Triage completed. as6 06:01 Bhanu Flores MD is Attending Physician. sierra 06:01 Bed in low position. Call light in reach. Side rails up X 1. as6 06:01 No provider procedures requiring assistance completed. as6 06:31 Juan Carlos Keene DDS is Referral Physician. sierra 06:43 Patient did not have IV access during this emergency room visit. as6 Administered Medications: 06:42 Drug: Ondansetron PO 4 mg Route: PO; as6 06:43 Follow up: Response: No adverse reaction as6 06:42 Drug: Hydrocodone-Acetaminophen PO (7.5 mg-325 mg) 1 tabs Route: PO; as6 06:43 Follow up: Response: No adverse reaction as6 Medication: 06:00 VIS not applicable for this client. as6 Outcome: 06:33 Discharge ordered by . sierra 06:42 Discharged to home ambulatory, with significant other. as6 06:42 Condition: stable 06:42 Discharge instructions given to patient, Instructed on discharge instructions, follow up and referral plans. medication usage, Demonstrated understanding of instructions, follow-up care, medications, Prescriptions given X 3. 06:43 Patient left the ED. as6 Signatures: Bhanu Flores MD MD cha Gomez, Alice ag3 Charlie Miller, INDRA RN as6
--- NOTE | 2023-04-12 06:34 | EDPHYS ---
Physician Documentation [facility] Name: Nelida Chin Age: 22 yrs Sex: Female : 2000 Arrival Date: 04/12/2023 Time: 05:48 Bed 5 Private MD: ED Physician Bhanu Flores HPI: 04/12 06:26 This 22 yrs old Female presents to ER via Ambulatory with complaints of sierra Toothache. 06:26 The patient presents with broken tooth/teeth, lost tooth/teeth, pain, redness. The sierra problem is located in the lower right second molar. Onset: The symptoms/episode began/occurred 3 day(s) ago. Duration: The symptoms are continuous, and are steadily getting worse. Modifying factors: The symptoms are alleviated by nothing, prescription meds. Associated signs and symptoms: Pertinent positives: pain, redness in area, vomiting. Severity of symptoms: At their worst the symptoms were moderate, in the emergency department the symptoms are unchanged. The patient has experienced similar episodes in the past. MANAGER ADMINISTRATIVE SERVICES: 05:57 LMP 02/06/2023, Verified, EDC 11/13/2023, Gestational age from LMP: 9 weeks 2 as6 days Historical: - Allergies: 06:00 No Known Allergies; as6 - Home Meds: 06:00 None [Active]; as6 - PMHx: 06:00 None; as6 - PSHx: 06:00 None; as6 - Immunization history:: Client reports having NOT received the Covid vaccine. - Social history:: Smoking status: Reported history of juuling and/or vaping. - Family history:: not pertinent. ROS: 06:26 Constitutional: Negative for fever, chills, and weight loss, Eyes: Negative for injury, sierra pain, redness, and discharge, Neck: Negative for injury, pain, and swelling, Cardiovascular: Negative for chest pain, palpitations, and edema, Respiratory: Negative for shortness of breath, cough, wheezing, and pleuritic chest pain, Back: Negative for injury and pain, : Negative for injury, bleeding, discharge, and swelling, MS/Extremity: Negative for injury and deformity, Skin: Negative for injury, rash, and discoloration, Neuro: Negative for headache, weakness, numbness, tingling, and seizure, Psych: Negative for depression, anxiety, suicide ideation, homicidal ideation, and hallucinations, Allergy/Immunology: Negative for hives, rash, and allergies, Endocrine: Negative for neck swelling, polydipsia, polyuria, polyphagia, and marked weight changes, Hematologic/Lymphatic: Negative for swollen nodes, abnormal bleeding, and unusual bruising. 06:26 ENT: Positive for Teeth pain Exam: 06:26 Constitutional: This is a well developed, well nourished patient who is awake, alert, sierra and in no acute distress. Eyes: Pupils equal round and reactive to light, extra-ocular motions intact. Lids and lashes normal. Conjunctiva and sclera are non-icteric and not injected. Cornea within normal limits. Periorbital areas with no swelling, redness, or edema. Neck: Trachea midline, no thyromegaly or masses palpated, and no cervical lymphadenopathy. Supple, full range of motion without nuchal rigidity, or vertebral point tenderness. No Meningismus. Chest/axilla: Normal chest wall appearance and motion. Nontender with no deformity. No lesions are appreciated. Cardiovascular: Regular rate and rhythm with a normal S1 and S2. No gallops, murmurs, or rubs. Normal PMI, no JVD. No pulse deficits. Respiratory: Lungs have equal breath sounds bilaterally, clear to auscultation and percussion. No rales, rhonchi or wheezes noted. No increased work of breathing, no retractions or nasal flaring. Abdomen/GI: Soft, non-tender, with normal bowel sounds. No distension or tympany. No guarding or rebound. No evidence of tenderness throughout. Back: No spinal tenderness. No costovertebral tenderness. Full range of motion. Skin: Warm, dry with normal turgor. Normal color with no rashes, no lesions, and no evidence of cellulitis. MS/ Extremity: Pulses equal, no cyanosis. Neurovascular intact. Full, normal range of motion. Neuro: Awake and alert, GCS 15, oriented to person, place, time, and situation. Cranial nerves II-XII grossly intact. Motor strength 5/5 in all extremities. Sensory grossly intact. Cerebellar exam normal. Normal gait. Psych: Awake, alert, with orientation to person, place and time. Behavior, mood, and affect are within normal limits. 06:26 ENT: Mouth: Oral mucosa: moist, Gums: noted to have cellulitis, reddened, swollen, on the lower right first molar, lower right second molar and lower right third molar, Tongue: is normal, abscess, is not appreciated, Posterior pharynx: is normal, no acute changes. Vital Signs: 05:57 BP 130 / 78; Pulse 83; Resp 18 S; Temp 98.4(TE); Pulse Ox 98% on R/A; Weight 58.97 kg as6 (R); Height 5 ft. 6 in. (R); Pain 0/10; 05:57 Body Mass Index 20.98 (58.97 kg, 167.64 cm) as6 05:57 Pain Scale: Adult as6 MDM: 06:01 Patient medically screened. sierra Administered Medications: 06:42 Drug: Ondansetron PO 4 mg Route: PO; as6 06:43 Follow up: Response: No adverse reaction as6 06:42 Drug: Hydrocodone-Acetaminophen PO (7.5 mg-325 mg) 1 tabs Route: PO; as6 06:43 Follow up: Response: No adverse reaction as6 Disposition Summary: 04/12/23 06:33 Discharge Ordered Location: Home sierra Problem: new sierra Symptoms: have improved sierra Condition: Stable sierra Diagnosis - Mild hyperemesis gravidarum sierra - Dental caries, unspecified sierra - Fracture of tooth (traumatic) - chronic sierra Followup: sierra - With: Private Physician - When: 2 - 3 days - Reason: Recheck today's complaints, Continuance of care, Re-evaluation by your physician Followup: sierra - With: Juan Carlos Keene DDS - When: 2 - 3 days - Reason: Recheck today's complaints, Re-evaluation by your physician Discharge Instructions: - Discharge Summary Sheet sierra - Dental Caries, Adult sierra - Dental Pain sierra - Hyperemesis Gravidarum sierra - Morning Sickness, [id number] sierra - Morning Sickness sierra - Dental Pain, [id number] sierra - Diet and Dental Disease sierra - Nausea, Adult, [id number] [facility] Forms: - Medication Reconciliation Form [facility] - Thank You Letter sierra - Antibiotic Education sierra - Prescription Opioid Use [facility] - [email or web address] [facility] Prescriptions: - acetaminophen-codeine 300-30 mg Oral tablet - take 1 tablet by ORAL route every 4-6 hours as needed for pain; 20 tablet; [facility] Refills: 0, Product Selection Permitted - ondansetron 4 mg Oral Tablet,disintegrating - take 1 tablet by ORAL route 3 times per day for 5 days; 20 tablet; Refills: 0, [facility] Product Selection Permitted - Amoxicillin 500 mg Oral Capsule - take 1 capsule by ORAL route every 8 hours for 10 days; 30 tablet; Refills: 0, [facility] Product Selection Permitted Signatures: Bhanu Flores MD MD cha Slawson, Ashby RN RN as6
[2023-04-12] MEDS ORDERED: ONDANSETRON 4 MG (ODT) TAB ONE (06:48)
[2023-04-12] MEDS ORDERED: HYDROCODONE/APAP 7.5/325 MG TAB ONE (06:49)
[2023-04-12 06:57] VITALS: BP 130/78; TEMP 98.4; O2SAT 98
== END 2023-04-12 06:43 | disposition home or self-care (01) ==
LOC: ER 05:48
DX: O21.0 Mild hyperemesis gravidarum (principal); O99.611 Diseases of the digestive system complicating pregnancy, first trimester; K02.9 Dental caries, unspecified; S02.5XXA Fracture of tooth (traumatic), initial encounter for closed fracture; Z3A.09 9 weeks gestation of pregnancy
CPT/HCPCS: 99283; Q0162